=== PATIENT | male | born 2005 | race Caucasian/White ===

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

== ENCOUNTER 2023-07-04 15:06 | Outpatient (RCR) | payer MEDICAID | END 2023-07-29 | LOC: WSOT | DX: M79.641 Pain in right hand (principal) ==